=== PATIENT | male | born 1990 | race Caucasian/White ===

== ENCOUNTER 2023-12-26 07:28 | Emergency (ER) | payer BC, SELFPAY ==
[2023-12-26 07:32] VITALS: BP 153/87
[2023-12-26 07:45] VITALS: BMI 34.4
--- NOTE | 2023-12-26 07:50 | ED.GENMED ---
History of Present Illness
General
Chief Complaint: Swelling
Time Seen by Provider: 12/26/23 07:43
Travel History
Have you had any contact with someone who has COVID-19?: No
Do you have any symptoms of coronavirus? Fever > 100 degrees, chills, cough, shortness of breath, sore throat, loss of taste or smell, muscle aches, or headache?: No
History of Present Illness
History of Present Illness:
33-year-old previously healthy male presents to the emergency department for evaluation of left lower lip swelling that began yesterday but worsened dramatically this morning. He states that there was a small pustular lesion to the left lower
face/lower lip area 2 days ago. He denies any dysphagia or trismus. No fevers or night sweats. No known history of MRSA
Review of Systems
Review of Systems
Allergies reviewed?: Yes
All Other Systems: ROS reviewed and negative except as documented in HPI and ROS
Phy Exam
Physical Exam
Physical Exam:
GEN: Well appearing, NAD, WDWN
HEENT: Oral mucosa moist, no scleral icterus. Erythematous furuncle type lesion to the left chin just inferior to the left lower lip, marked angioedema of the left lower lip, no tongue edema, oropharynx clear without edema or tonsillar hypertrophy.
No trismus, positive submandibular adenopathy, no neck rigidity or crepitus
Cardiac: Regular rate and rhythm
Lung: No respiratory distress, no tachypnea
MSK: No gross deformity or injuries
Skin: Good color, no pallor or jaundice, no rashes
Neuro: AO x3, moves all extremities freely
Psych: Calm, cooperative
Course
Orders/Labs/Results
Orders:
Orders
12/26/23 07:48
Diphenhydramine [Benadryl] 25 mg IV NOW STA
Famotidine [Pepcid] 20 mg IV NOW STA
MethylPREDNISolone PF [Solu-Medrol Pf] 60 mg IV NOW STA
12/26/23 07:56
Basic Metabolic Panel Urgent
Complete Blood Count/With Diff Urgent
12/26/23 08:36
CeFAZolin 2 GRAM [Ancef] 2 grams in 10 ml IV NOW
Abnormal Lab Results
12/26/23
07:56
Absolute Neuts (auto) 8.6 H 10^3/uL
(1.4-6.5)
Absolute Monos (auto) 0.7 H 10^3/uL
(0.1-0.6)
Neutrophils % 79.5 H %
(42.2-75.2)
Lymphocytes % 13.3 L %
(20.5-51.1)
Glucose 100 H mg/dl
(70-99)
12/26/23 07:56
12/26/23 07:56
Vital Signs
Initial and Last Documented VS:
Initial Vital Signs
Temp Pulse Resp BP Pulse Ox
98.3 F 102 20 153/87 99
12/26/23 07:32 12/26/23 07:32 12/26/23 07:32 12/26/23 07:32 12/26/23 07:32
Last Documented Vital Signs
Temp Pulse Resp BP Pulse Ox
98.3 F 99 18 150/80 99
12/26/23 07:32 12/26/23 08:51 12/26/23 08:51 12/26/23 08:51 12/26/23 08:51
MDM/Problems Addressed
MDM/Problems Addressed:
Patient with localized lower lip angioedema reactive from adjacent furuncle to the face. Will start him on dual coverage antibiotics as well as corticosteroids for the edema. No evidence of airway involvement. Clinically he is overall well and
labs are reassuring, no indication for imaging the face to evaluate for deep space abscess
*Critical Care Note
Total Time (30-74mins, 75-104mins- exclusive of procedures): Not Applicable
ED Attending Note
-
Portions of this chart may have been created with voice recognition software.� Occasional wrong word or��sound alike� substitutions may have occurred due to the inherent limitations of voice recognition software.
Discharge Plan
Departure
Patient Disposition: Home (Routine Discharge)
Date of Disposition: 12/26/23
Time of Disposition: 08:39
Patient with high blood pressure during this ER visit?: No
Discharge Problem:
Cellulitis of face
Instructions: Cellulitis (Skin Infection), Adult ED
Prescriptions:
New
cephalexin 500 mg capsule
500 mg PO Q8H 7 Days Qty: 21 0RF
sulfamethoxazole-trimethoprim [Bactrim DS] 800-160 mg tablet
1 tab PO BID 7 Days Qty: 14 0RF
methylprednisolone [Medrol (Salazar)] 4 mg tablets,dose pack
See Rx Instructions .ROUTE .COMPLEX Qty: 21 0RF
Rx Instructions:
orally per package directions
Referrals:
NONE,* [Family Provider] -
Activity Restrictions/Additional Instructions:
Return if your symptoms worsen, or if you develop fevers, difficulty opening the mouth, or tongue swelling
Interventions
Interventions:
*Risk Screen - Suicide Last Done: 12/26/23 07:32
*General Assessment Last Done: 12/26/23 07:32
*Neglect/Abuse Screening Last Done: 12/26/23 07:32
ED- Fall Risk Assessment Last Done: 12/26/23 07:45
*ED COVID-19 Vaccine History Last Done: 12/26/23 07:45
*Nursing Disposition Last Done: 12/26/23 08:50
ED- Cardiac Assessment Last Done: 12/26/23 07:45
ED- Pulmonary Assessment Last Done: 12/26/23 07:45
ED-Skin Assessment Last Done: 12/26/23 07:45
Discharge Date and Time
Discharge Date/Time: 12/26/23 08:52
Print Language: BRAZILIAN
[2023-12-26] MEDS: BENADRYL 25 MG IV (08:02)
[2023-12-26] MEDS: PEPCID 20 MG IV (08:02)
[2023-12-26] MEDS: SOLU-MEDROL PF 60 MG IV (08:04)
[2023-12-26 08:05] LABS: % Basophils 0.4 % (0-2); % Eosinophils 0.3 % (0-6); % Immature Granulocytes 0.2 % (0-0.5); % Lymphocytes 13.3 % (20.5-51.1); % Monocytes 6.3 % (1.7-9.3); % Neutrophils 79.5 % (42.2-75.2); Absolute Lymphocytes 1.4 10^3/uL (1.2-3.4); Absolute Monocytes 0.7 10^3/uL (0.1-0.6); Absolute Neutrophils 8.6 10^3/uL (1.4-6.5); Hematocrit 44.8 % (39.0-52.0); Hemoglobin 15.8 g/dL (13.0-18.0); Mean Corp Hgb Conc. 35.3 g/dL (33.0-37.0); Mean Corpuscular Volume 85.2 fL (80.0-94.0); Mean Platelet Volume 10.4 fL (7.4-10.4); Nucleated Red Blood Cells % 0 % (-); Platelet Count 227 10^3/uL (130-400); Red Blood Cell Count 5.26 10^6/uL (4.70-6.10); Red Cell Dist. Width 12.4 % (11.5-14.5); White Blood Cell Count 10.8 10^3/uL (4.8-10.8)
[2023-12-26 08:28] LABS: Blood Urea Nitrogen 14 mg/dl (9-20); Calcium 9.6 mg/dl (8.4-10.2); Carbon Dioxide 27 mmol/L (22-30); Chloride 103 mmol/L (98-107); Estimated Creatinine Clearance > 125 ml/min; Glucose 100 mg/dl (70-99); Potassium 4.4 mmol/L (3.5-5.1); Sodium 140 mmol/L (135-145); eGFR > 60.00
[2023-12-26] MEDS: ANCEF 10 IV (08:45)
[2023-12-26 08:51] VITALS: BP 150/80
== END 2023-12-26 08:52 | disposition home or self-care (01) ==
LOC: EMR 07:28
PROVIDERS: Physician Assistant; EMERGENCY PHYSICIAN Emergency Medicine
DX: L03.211 Cellulitis of face (principal)
CPT/HCPCS: 99284; 96374; 96375 ×3; 80048; 85025